=== PATIENT | female | born 1980 | race Two or more races ===

== ENCOUNTER 2016-11-07 00:06 | Emergency (ER) | payer OTHER, BC ==
--- NOTE | 2016-11-07 01:11 | PDOC ---
History of Present Illness - General Stated Complaint: FOOT INJURY/KNEE PAIN (WORK) History Source: Patient Exam Limitations: No Limitations - History of Present Illness Initial Comments: 11/07/16 01:05 Patient is a 36-year-old female with history of rotator cuff surgery complaining of left foot pain since 4 PM. States while working she misstepped on a sort of manhole cover, twisting the foot. States the pain has progressively worsened and now started to radiate up the leg into the buttock. It became unbearable to have her equipment on. PMD: dont remember name PMHX: as above PSOCHx: neg etoh, durg, cig ALL: NKDA GENERAL/CONSTITUTIONAL: [No fever or chills. No weakness. No weight change.] HEAD, EYES, EARS, NOSE AND THROAT: [No change in vision. No ear pain or discharge. No sore throat.] CARDIOVASCULAR: [No chest pain or shortness of breath.] RESPIRATORY: [No cough, wheezing, or hemoptysis.] GASTROINTESTINAL: [No nausea, vomiting, diarrhea or constipation. No rectal bleeding.] GENITOURINARY: [No dysuria, frequency, or change in urination.] MUSCULOSKELETAL: (+) joint or muscle swelling or pain. No neck or back pain.] SKIN AND BREASTS: [No rash or easy bruising.] NEUROLOGIC: [No headache, vertigo, loss of consciousness, or loss of sensation.] PSYCHIATRIC: [No depression or anxiety.] ENDOCRINE: [No increased thirst. No abnormal weight change.] HEMATOLOGIC/LYMPHATIC: [No anemia, easy bleeding, or history of blood clots.] ALLERGIC/IMMUNOLOGIC: [No hives or skin allergy. No latex allergy.] GENERAL: [The patient is awake, alert, and fully oriented, in no acute distress. ] HEAD: [Normal with no signs of trauma.] EYES: [Pupils equal, round and reactive to light, extraocular movements intact, sclera anicteric, conjunctiva clear.] ENT: [Ears normal, nares patent, oropharynx clear without exudates. Moist mucous membranes.] NECK: [Normal range of motion, supple without lymphadenopathy, JVD, or masses.] LUNGS: [Breath sounds equal, clear to auscultation bilaterally. No wheezes, and no crackles.] HEART: [Regular rate and rhythm, normal S1 and S2 without murmur, rub.] ABDOMEN: [Soft, nontender, normoactive bowel sounds. No guarding, no rebound. No masses.] EXTREMITIES: (+)tenderness over the base of the 5th MT left, normal range of motion, no edema. No clubbing or cyanosis. No cords, erythema, or tenderness.] NEUROLOGICAL: [Cranial nerves II through XII grossly intact. Normal speech, normal gait.] PSYCH: [Normal mood, normal affect.] SKIN: [Warm, Dry, normal turgor, no rashes or lesions noted.] Past History - Past Medical History Allergies/Adverse Reactions: Allergies Allergy/AdvReac Type Severity Reaction Status Date / Time No Known Allergies Allergy Verified 11/07/16 02:53 Home Medications: Ambulatory Orders NK [No Known Home Medication] 11/07/16 Medical Decision Making - Medical Decision Making 11/07/16 01:09 Nay is a 36 year old female with h/o rotator cuff surgery c/o left foot pain that now radiates up the buttock, injury on the job. consistent with foot sprain but will r/o fracture xray foot neg for fx 11/07/16 03:22 I discussed the physical exam findings, ancillary test results and final diagnoses with the patient. I answered all of the patient's questions. The patient was satisfied with the care received and felt comfortable with the discharge plan and treatment plan. The Patient agrees to follow up with the primary care physician within 24-72 hours. *DC/Admit/Observation/Transfer Diagnosis at time of Disposition: Sprain of foot, left Qualifiers: Encounter type: initial encounter Qualified Code(s): S93.602A - Unspecified sprain of left foot, initial encounter - Discharge Dispostion Disposition: HOME Condition at time of disposition: Stable - Referrals Referrals: Jose Eduardo Chahal MD [Staff Physician] - - Patient Instructions Printed Discharge Instructions: DI for Foot Sprain Additional Instructions: Your Discharge Instructions: You must call primary care physician within 24 hours to arrange follow-up. Return to the Emergency Department with any new, persistent or worsening symptoms, for fever, chills, SOB, dizziness or any other concerning changes that may occur. - Post Discharge Activity Work/School Note: Back to Work
[2016-11-07 02:21] VITALS: BP 111/91; PULSE 72; TEMP 98.6; BMI 27.6
== END 2016-11-07 03:37 | disposition home or self-care (01) ==
LOC: JER 00:06
DX: S93.602A Unspecified sprain of left foot, initial encounter (principal); X50.1XXA Overexertion from prolonged static or awkward postures, initial encounter; Y93.89 Activity, other specified; Y92.414 Local residential or business street as the place of occurrence of the external cause; Y99.0 Civilian activity done for income or pay
CPT/HCPCS: 73630-TC-LT; 84703; 99281-25

== ENCOUNTER 2020-03-13 10:37 | Emergency (ER) | payer BC, OTHER ==
[2020-03-13 10:51] VITALS: BP 121/74; PULSE 74; TEMP 97.7; BMI 29.9
[2020-03-13 12:13] LABS: BASO % 0.8 % (0-2.0); HEMATOCRIT 39.8 % (32.4-45.2); HEMOGLOBIN 13.1 GM/dL (10.7-15.3); LYMPH % 26.5 % (8-40); MCH 30.2 pg (25.7-33.7); MCHC 32.9 g/dl (32.0-36.0); MEAN CELL VOLUME 91.7 fl (80-96); MEAN PLT VOLUME 9.6 fl (7.5-11.1); MONO % 7.9 % (3.8-10.2); NEUT % 62.8 % (42.8-82.8); PLATELET COUNT 298 K/MM3 (134-434); RBC 4.35 M/mm3 (3.60-5.2); WHITE BLOOD COUNT 6.7 K/mm3 (4.0-10.0)
[2020-03-13 12:28] LABS: EPI CELLS 26 /uL (0-25.1); HYALINE CASTS 6 /uL (0-3.1); URINE APPEARANCE CLOUDY; URINE BACTERIA 1481 /uL (0-1359); URINE BILIRUBIN NEGATIVE (NEGATIVE); URINE COLOR RED; URINE GLUCOSE (UA) NEGATIVE (NEGATIVE); URINE KETONE NEGATIVE (NEGATIVE); URINE LEUK ESTERASE 2+ (NEGATIVE); URINE NITRITE NEGATIVE (NEGATIVE); URINE PROTEIN 2+ (NEGATIVE); URINE RBC 338 /uL (0-23.9); URINE UROBILINOGEN 0.2 mg/dL (0.2-1.0); URINE WBC 214 /uL (0-25.8)
[2020-03-13 12:44] LABS: POTASSIUM 5.4 mmol/L (3.5-5.1)
[2020-03-13 12:45] LABS: CALCIUM 8.9 mg/dL (8.5-10.1)
[2020-03-13 12:46] LABS: ALBUMIN 3.6 g/dl (3.4-5.0); BLOOD UREA NITROGEN 13.5 mg/dL (7-18)
[2020-03-13 12:49] LABS: CREATININE 0.9 mg/dL (0.55-1.3)
[2020-03-13 12:51] LABS: BILIRUBIN,TOTAL 0.4 mg/dL (0.2-1); TOT PROT 8.2 g/dl (6.4-8.2)
== END 2020-03-13 14:02 | disposition home or self-care (01) ==
LOC: JER 10:37
DX: O20.8 Other hemorrhage in early pregnancy (principal)
CPT/HCPCS: 36415; 76817-TC; 80053; 81003; 84702; 85025; 86850; 86900; 86901; 87086; 99284-25

== ENCOUNTER 2021-05-24 00:25 | Emergency (ER) | payer BC, OTHER ==
[2021-05-24 00:43] VITALS: TEMP 98.3; BMI 31.0
[2021-05-24] MEDS ORDERED: morphine SULFATE 4 MG/ML VIAL ONE (01:02)
[2021-05-24] MEDS ORDERED: morphine CARPU-JECT 4 MG/1 ML DISP.SYRIN IVPUSH ONE (01:05)
[2021-05-24] MEDS ORDERED: LACTATED RINGERS SOLUTION 1000 ML INFUS.BAG IV ONE ×2 (01:05→03:58)
[2021-05-24] MEDS ORDERED: PIPERACILLIN/TAZOB 3.375 GM 3.375 GM in DEXTROSE 5%-WATER - 50 ML IVPB ONE (01:07)
[2021-05-24] MEDS ORDERED: METHYLERGONOVINE MALEATE 0.2 MG/1 ML AMP IM ONE (01:17)
[2021-05-24 01:21] LABS: HEMATOCRIT 32.8 % (32.4-45.2); HEMOGLOBIN 11.2 GM/dL (10.7-15.3); MCH 29.8 pg (25.7-33.7); MEAN CELL VOLUME 87.5 fl (80-96); MEAN PLT VOLUME 8.3 fl (7.5-11.1); PLATELET COUNT 286 10^3/uL (134-434); RBC 3.75 M/mm3 (3.60-5.2); RDW 13.7 % (11.6-15.6); WHITE BLOOD COUNT 13.8 K/mm3 (4.0-10.0)
[2021-05-24 01:38] LABS: INR 1.13 (0.83-1.09)
[2021-05-24 01:41] LABS: ACTIVATED PTT 29.8 SECONDS (25.2-36.5)
[2021-05-24 01:50] LABS: CALCIUM 8.5 mg/dL (8.5-10.1)
[2021-05-24 01:51] LABS: BLOOD UREA NITROGEN 12.2 mg/dL (7-18)
[2021-05-24 01:53] LABS: CREATININE 0.8 mg/dL (0.55-1.3)
[2021-05-24 01:55] LABS: BILIRUBIN,TOTAL 0.1 mg/dL (0.2-1); TOT PROT 7.3 g/dl (6.4-8.2)
[2021-05-24] MEDS ORDERED: PIPERACILLIN/TAZOB 3.375 GM 3.375 GM/50 ML BAG IVPB ONE (01:57)
[2021-05-24 02:33] LABS: ANISOCYTOSIS 1+; MACROCYTOSIS 0
[2021-05-24] MEDS ORDERED: KETOROLAC TROMETHAMINE 15 MG/ML VIAL IVPUSH ONE (03:55)
[2021-05-24] MEDS ORDERED: KETOROLAC TROMETHAMINE 15 MG/ML VIAL ONE (04:06)
[2021-05-24 06:47] VITALS: BP 101/60; PULSE 71
== END 2021-05-24 07:08 | disposition home or self-care (01) ==
LOC: JER 00:25
PROC: 3E0333Z Introduction of Anti-inflammatory into Peripheral Vein, Percutaneous Approach (ICD-10-PCS; principal; 2021-05-24)
PROC: 3E033NZ Introduction of Analgesics, Hypnotics, Sedatives into Peripheral Vein, Percutaneous Approach (ICD-10-PCS; 2021-05-24)
PROC: 3E03329 Introduction of Other Anti-infective into Peripheral Vein, Percutaneous Approach (ICD-10-PCS; 2021-05-24)
PROC: 3E023GC Introduction of Other Therapeutic Substance into Muscle, Percutaneous Approach (ICD-10-PCS; 2021-05-24)
DX: O03.9 Complete or unspecified spontaneous abortion without complication (principal)
CPT/HCPCS: 36415; 76817-TC; 80053; 85025; 85610; 85730; 86850; 86900; 86901; 88305-TC; 99284-25

== ENCOUNTER 2021-06-07 05:04 | Day surgery (SDC) | payer BC, OTHER ==
[2021-06-03 13:26] VITALS: BMI 31.0
[2021-06-07] MEDS ORDERED: MIDAZOLAM HCL 2 MG/2 ML SINGLE DOSE VIAL ONE (15:06)
[2021-06-07] MEDS ORDERED: DEXAMETHASONE SOD PHOSPHATE 4 MG/1 ML VIAL ONE (15:06)
[2021-06-07] MEDS ORDERED: KETOROLAC TROMETHAMINE 30 MG/1 ML VIAL ONE (15:29)
[2021-06-07] MEDS ORDERED: ceFAZolin SODIUM 1 GM VIAL ONE (15:35)
[2021-06-07] MEDS ORDERED: ceFAZolin SODIUM 1 GM VIAL IVPB ONE (15:36)
[2021-06-07] MEDS ORDERED: SUCCINYLCHOLINE CHLORIDE 200 MG/10 ML SYRINGE ONE (15:42)
[2021-06-07] MEDS ORDERED: ONDANSETRON 4 MG/2 ML VIAL IVPUSH PRN (16:51)
[2021-06-07] MEDS ORDERED: oxyCODONE HCL 5 MG TABLET PO PRN ×2 (16:51)
[2021-06-07] MEDS ORDERED: LACTATED RINGERS SOLUTION 1,000 ML IV SCH (17:00)
[2021-06-07 19:19] VITALS: BP 115/64; PULSE 88; TEMP 98
== END 2021-06-07 19:21 | disposition home or self-care (01) ==
LOC: JASU-SURG 05:04
PROVIDERS: ATTEND Obstetrics & Gynecology
PROC: 10D17ZZ Extraction of Products of Conception, Retained, Via Natural or Artificial Opening (ICD-10-PCS; principal; 2021-06-07 12:00)
DX: O03.4 Incomplete spontaneous abortion without complication (principal)
CPT/HCPCS: 76856-TC; 86850; 86900; 86901; 88305-TC; 94760